=== PATIENT | female | born 1940 | race Caucasian/White ===

== ENCOUNTER → 2017-04-25 | Outpatient (CLI) | payer MEDICARE, OTHER ==
--- NOTE | 2017-04-25 10:49 | BD ---
EXAMINATION TYPE: MG DEXA axial skeleton. DATE OF EXAM: 04/25/2017 COMPARISON: 2010 CLINICAL HISTORY: 76-year-old female osteoporosis Height: 5'3 Weight: 138 FRAX RISK QUESTIONS: Alcohol (3 or more units per day): no Family History (Parent hip fracture): no Glucocorticoids (More than 3mos): no (Ex: prednisone, prednisolone, methylprednisolone, dexamethasone, and hydrocortisone). History of Fracture in Adulthood: yes Secondary Osteoporosis: 1. Type 1 Diabetes: no 2. Hyperthyroidism: no 3. Menopause before 45: no 4. Malnutrition: no 5. Chronic liver disease: no Rheumatoid Arthritis: no Current Tobacco Use: no RISK FACTORS HISTORY OF: Diet low in dairy products/other sources of calcium: yes Postmenopausal woman: yes MEDICATIONS: Thyroid Medications: Which medication: Synthroid How Lon years Additional Medications: blood pressure, heart meds zoloft Additional History: pt had stents, EXAM MEASUREMENTS: Bone mineral densitometry was performed using the Dyn System. Bone mineral density as measured about the Lumbar spine is: ----- L1-L4(G/cm2): 1.255 T Score Values are as follows: ----- L2: 0.3 ----- L3: 0.3 ----- L4: 1.2 ----- L1-L4: 0.6 Bone mineral density has: Decreased -1.2% since study of: 09/17/2014 Bone mineral density about the R hip (g/cm2): 0.850 Bone mineral density about the L hip (g/cm2): 0.751 T Score values are as follows: -----R Neck: -1.4 -----L Neck: -2.1 -----R Total: -1.5 -----L Total: -1.7 Bone mineral density has: Decreased -7.9% since study of: 09/17/2014 IMPRESSION: Osteopenia as indicated by T score values in both hips. There is slightly increased risk of fracture and the patient may be considered for treatment. Re-Screen 2-5 years. NOTE: T-SCORE=SD OF THE YOUNG ADULT MEAN.
--- NOTE | 2017-04-26 07:33 | MM ---
Reason for exam: screening (asymptomatic). Last mammogram was performed 2 years and 7 months ago. History: Patient is postmenopausal. Took estrogen for 12 years 5 months. Took progesterone for 12 years 5 months. Physical Findings: A clinical breast exam by your physician is recommended on an annual basis and results should be correlated with mammographic findings. MG Screening Mammo w CAD Bilateral CC and MLO view(s) were taken. Prior study comparison: September 17, 2014, bilateral MG screening mammo w CAD. The breast tissue is heterogeneously dense. This may lower the sensitivity of mammography. Finding: There are typically benign vascular, round calcifications in both breasts. Asymmetric breast tissue. Developing asymmetry in the right anterior slight outer aspect. ASSESSMENT: Incomplete: need additional imaging evaluation, BI-RAD 0 RECOMMENDATION: Special view mammogram of the right breast. If lesion persists on supplemental views, image directed ultrasound is recommended. [facility] will attempt to contact patient to return for supplemental views and ultrasound if indicated.
== END | disposition home or self-care (01) ==
LOC: RADBDWWP 09:34
PROVIDERS: ATTEND Internal Medicine Geriatric Medicine
DX: Z12.31 Encounter for screening mammogram for malignant neoplasm of breast (principal); M85.80 Other specified disorders of bone density and structure, unspecified site; R92.2 Inconclusive mammogram
CPT/HCPCS: 77080; G0202

== ENCOUNTER → 2017-04-29 | Outpatient (CLI) | payer MEDICARE, OTHER ==
--- NOTE | 2017-04-29 11:03 | MM ---
Reason for exam: additional evaluation requested from abnormal screening. Last mammogram was performed less than 1 month ago. History: Patient is postmenopausal. Took estrogen for 12 years 5 months. Took progesterone for 12 years 5 months. Physical Findings: Nurse did not find any significant physical abnormalities on exam. MG 3D Work Up W/Cad RT CC and MLO view(s) were taken of the right breast. Prior study comparison: April 25, 2017, bilateral MG screening mammo w CAD. September 17, 2014, bilateral MG screening mammo w CAD. June 23, 2012, bilateral digital screening mammo w/CAD. The breast tissue is heterogeneously dense. This may lower the sensitivity of mammography. The lateral anterior asymmetric density does not persist compatible with summation shadow. These results were verbally communicated with the patient and result sheet given to the patient on 04/29/17. ASSESSMENT: Negative, BI-RAD 1 RECOMMENDATION: Return to routine screening mammogram schedule for both breasts.
== END | disposition home or self-care (01) ==
LOC: RADMAMWWP 09:31
PROVIDERS: ATTEND Internal Medicine Geriatric Medicine
DX: R92.8 Other abnormal and inconclusive findings on diagnostic imaging of breast (principal)
CPT/HCPCS: G0206; G0279

== ENCOUNTER 2018-08-06 17:19 | Emergency (ER) | payer MEDICARE, OTHER ==
[2018-08-06 17:29] VITALS: TEMP 98.1
--- NOTE | 2018-08-06 17:41 | ED ---
General Adult HPI - General Chief complaint: Neuro Symptoms/Deficit Stated complaint: POSS TIA Source: patient, EMS Mode of arrival: EMS Limitations: no limitations - History of Present Illness Initial comments: Dictation was produced using garbs dictation software. please excuse any grammatical, word or spelling errors. Chief Complaint: 77-year-old female with past medical history of recent subdural hematoma evacuation presents with several minute episode of right upper extremity numbness and slurred speech. History of Present Illness: This 77-year-old female. Last Tuesday she is found to have subdural hematoma on outpatient CT. She was transferred to [facility] where she was evaluated by neurosurgery. She had a subdural hematoma evacuation. Patient is admitted to the hospital approximately one week. She was discharged yesterday. Today this morning she was at rest when she experience approximately 15 minutes of right upper extremity paresthesias and slurred speech. This was witnessed by her who is at bedside with patient. Currently patient appears to be at baseline. No slurred speech, facial droop, nor deficits or paresthesias noted. Patient does not have a history of CVA. She is on antiepileptics postoperatively. The ROS documented in this emergency department record has been reviewed and confirmed by me. Those systems with pertinent positive or negative responses have been documented in the HPI. All other systems are other negative and/or noncontributory. - Related Data Home Medications Medication Instructions Recorded Confirmed Levothyroxine Sodium [Synthroid] 125 mcg PO DAILY 09/16/15 08/06/18 Sertraline [Zoloft] 75 mg PO DAILY 09/16/15 08/06/18 Acetaminophen [Tylenol] 650 mg PO Q6H PRN 08/06/18 08/06/18 Atorvastatin [Lipitor] 40 mg PO HS 08/06/18 08/06/18 cycloSPORINE 0.05% OPHTH SOLN 1 drop BOTH EYES Q12H 08/06/18 08/06/18 [Restasis] levETIRAcetam [Keppra] 500 mg PO BID 08/06/18 08/06/18 Allergies Allergy/AdvReac Type Severity Reaction Status Date / Time Sulfa (Sulfonamide Allergy Rash/Hives Verified 08/06/18 18:23 Antibiotics) Penicillins AdvReac Nausea Verified 08/06/18 18:23 Review of Systems ROS Statement: Those systems with pertinent positive or pertinent negative responses have been documented in the HPI. ROS Other: All systems not noted in ROS Statement are negative. Past Medical History Past Medical History: Hyperlipidemia Additional Past Medical History / Comment(s): subdural hematoma History of Any Multi-Drug Resistant Organisms: None Reported Past Surgical History: Heart Catheterization With Stent, Orthopedic Surgery Additional Past Surgical History / Comment(s): surgical removal of subdural hematoma Smoking Status: Never smoker Past Alcohol Use History: Rare Past Drug Use History: None Reported General Exam - General Exam Comments Initial Comments: PHYSICAL EXAM: General Impression: Alert and oriented x3, not in acute distress HEENT: Normocephalic atraumatic, extra-ocular movements intact, pupils equal and reactive to light bilaterally, mucous membranes moist. Cardiovascular: Heart regular rate and rhythm, S1&S2 audible, no murmurs, rubs or gallops Chest: Lungs clear to auscultation bilaterally, no rhonchi, no wheeze, no rales Abdomen: Bowel sounds present, abdomen soft, non-tender, non-distended, no organomegaly Musculoskeletal: Pulses present and equal in all extremities, no peripheral edema Motor: Power 5/5 bilaterally, no focal deficits noted Neurological: CN II-XII grossly intact, no focal motor or sensory deficits noted Skin: Intact with no visualized rashes Psych: Normal affect and mood Limitations: no limitations Course Vital Signs 08/06/18 08/06/18 17:20 18:15 Temperature 98.1 F Pulse Rate 70 67 Respiratory 16 16 Rate Blood Pressure 147/71 145/81 O2 Sat by Pulse 96 97 Oximetry Medical Decision Making - Medical Decision Making ED course: 77-year-old female approximately one week out from subdural hematoma evacuation presents with strokelike symptoms that resolved spontaneously. Vital signs upon arrival are within acceptable limits. Neuro exam is normal. Patient feels at baseline. NIH is 0.Laboratory evaluation was obtained. Hemoglobin stable at 11.0. Cardiac panel unremarkable. Potassium level III.3. Rest metabolic panel is grossly unremarkable. Brain CT shows left frontal parietal acute and chronic subdural hemorrhage. There is mild pneumocephalus. These findings represent postsurgical changes. Discussed patient case with Dr. Rodriguez who is covering for patient's neurosurgeon Dr. Yan. Dr. Rodriguez recommends that patient be given 500 mg of Keppra. This likely has to do with some seizure activity from irritation of the blood. Recommends that she is stable for discharge. Patient is told to follow with Dr. Randle tomorrow. Family is told to bring patient back should she express any repeat symptoms. - Lab Data Result diagrams: 08/06/18 17:48 08/06/18 17:48 Lab Results 08/06/18 08/06/18 08/06/18 Range/Units 17:48 17:48 17:48 WBC 6.0 (3.8-10.6) k/uL RBC 3.47 L (3.80-5.40) m/uL Hgb 11.0 L (11.4-16.0) gm/dL Hct 32.7 L (34.0-46.0) % MCV 94.1 (80.0-100.0) fL MCH 31.8 (25.0-35.0) pg MCHC 33.7 (31.0-37.0) g/dL RDW 12.7 (11.5-15.5) % Plt Count 200 (150-450) k/uL Neutrophils % 58 % Lymphocytes % 27 % Monocytes % 8 % Eosinophils % 4 % Basophils % 1 % Neutrophils # 3.5 (1.3-7.7) k/uL Lymphocytes # 1.6 (1.0-4.8) k/uL Monocytes # 0.5 (0-1.0) k/uL Eosinophils # 0.2 (0-0.7) k/uL Basophils # 0.1 (0-0.2) k/uL PT 10.9 (9.0-12.0) sec INR 1.1 (<1.2) Sodium 137 (137-145) mmol/L Potassium 3.3 L (3.5-5.1) mmol/L Chloride 104 (98-107) mmol/L Carbon Dioxide 27 (22-30) mmol/L Anion Gap 6 mmol/L BUN 11 (7-17) mg/dL Creatinine 0.51 L (0.52-1.04) mg/dL Est GFR (CKD-EPI)AfAm >90 (>60 ml/min/1.73 sqM) Est GFR (CKD-EPI)NonAf >90 (>60 ml/min/1.73 sqM) Glucose 112 H (74-99) mg/dL Calcium 8.9 (8.4-10.2) mg/dL Magnesium 1.9 (1.6-2.3) mg/dL Disposition Clinical Impression: Transient neurologic deficit Disposition: HOME SELF-CARE Condition: Fair Instructions: Seizures After Traumatic Brain Injury (ED) Is patient prescribed a controlled substance at d/c from ED?: No Referrals: Jimmie Arshad MD [Primary Care Provider] - 1-2 days Time of Disposition: 19:16
[2018-08-06] MEDS ORDERED: ACETAMINOPHEN TAB 500 MG TAB PO STA (17:59)
[2018-08-06 18:00] LABS: Basophils # (A) 0.1 k/uL (0-0.2); Basophils % (A) 1 %; Eosinophils # (A) 0.2 k/uL (0-0.7); Eosinophils % (A) 4 %; HCT 32.7 % (34.0-46.0); Lymphocytes # (A) 1.6 k/uL (1.0-4.8); Lymphocytes % (A) 27 %; MCH 31.8 pg (25.0-35.0); MCHC 33.7 g/dL (31.0-37.0); MCV 94.1 fL (80.0-100.0); Mean Platelet Volume 8.3; Monocytes # (A) 0.5 k/uL (0-1.0); Monocytes % (A) 8 %; Neutrophils # (A) 3.5 k/uL (1.3-7.7); Neutrophils % (A) 58 %; Platelet Count 200 k/uL (150-450); RBC 3.47 m/uL (3.80-5.40); RDW 12.7 % (11.5-15.5)
[2018-08-06 18:08] LABS: Anion Gap 6 mmol/L; Blood Urea Nitrogen 11 mg/dL (7-17); Calcium 8.9 mg/dL (8.4-10.2); Carbon Dioxide 27 mmol/L (22-30); Chloride 104 mmol/L (98-107); Glucose 112 mg/dL (74-99); Magnesium 1.9 mg/dL (1.6-2.3); Potassium 3.3 mmol/L (3.5-5.1); Sodium 137 mmol/L (137-145)
[2018-08-06 18:11] LABS: INR 1.1 (<1.2); Prothrombin Time 10.9 sec (9.0-12.0)
--- NOTE | 2018-08-06 18:30 | CT ---
EXAMINATION TYPE: CT brain wo con DATE OF EXAM: 08/06/2018 COMPARISON: None HISTORY: Weakness, hx of brain bleed sx CT DLP: 982.7 mGycm Automated exposure control for dose reduction was used. FINDINGS: There is left frontal craniotomy defect. There is air bubbles in the subdural space over the left fro ntal and parietal lobe. There is no mass effect. There is no midline shift. There is small areas of s ubdural hemorrhage over the left posterior frontal lobe. This measures up to 6 mm in thickness. There is widening of the subdural space over the craniotomy defect. IMPRESSION: THERE IS LEFT FRONTAL AND PARIETAL ACUTE AND CHRONIC SUBDURAL HEMORRHAGE. RECENT SURGERY. MILD PNEUMO CEPHALUS. There is very minimal effacement of the left parietal lobe cortex on the coronal images. Ac lorena and chronic hemorrhage measures up to 11 mm thickness.
[2018-08-06] MEDS ORDERED: levETIRAcetam 500 MG TAB PO STA (19:11)
[2018-08-06 19:31] VITALS: BP 126/72; PULSE 69; RESP 18
== END 2018-08-06 20:05 | disposition home or self-care (01) ==
LOC: EC 17:19
DX: R29.818 Other symptoms and signs involving the nervous system (principal); G93.89 Other specified disorders of brain; R29.700 NIHSS score 0; I62.03 Nontraumatic chronic subdural hemorrhage; E78.5 Hyperlipidemia, unspecified; Z95.5 Presence of coronary angioplasty implant and graft; Z98.890 Other specified postprocedural states; Z79.899 Other long term (current) drug therapy; Z88.0 Allergy status to penicillin; Z88.2 Allergy status to sulfonamides
CPT/HCPCS: 36415; 70450; 80048; 83735; 85025; 85610; 99285

== ENCOUNTER → 2019-12-18 | Outpatient (CLI) | payer MEDICARE, OTHER ==
--- NOTE | 2019-12-18 09:18 | CT ---
EXAMINATION TYPE: CT brain wo con DATE OF EXAM: 12/18/2019 COMPARISON: 08/06/2018 HISTORY: Recent fall, dizziness, history of prior brain hemorrhage CT DLP: 945.5 mGycm Automated exposure control for dose reduction was used. TECHNIQUE: CT scan of the head is performed without contrast. FINDINGS: The previously seen left frontal acute subdural hematoma has resolved however there remain s a very small 6 mm greatest thickness left frontal subdural hygroma. Additionally there remain foci of extra-axial air in the left frontal region deep to the craniotomy defect, fewer than the prior 201 8. There is some mass effect on the left frontal sulci in comparison to the right although no acute h emorrhage is seen. There is no midline shift. There is diffuse ventricular and sulcal prominence cons istent with diffuse age-related cerebral atrophy. There is low-attenuation in the periventricular wh ite matter consistent with chronic small vessel ischemic change. The globes are intact and the visua lized sinuses are clear. Scleral banding is seen on the right. Left frontal possible sebaceous cyst seen just deep to the skin surface. Extensive atherosclerosis is seen in the intracranial vasculatur e. IMPRESSION: 1. Chronic subdural hygroma on the left although there is mass effect on the left frontal lobe with f ocal narrowing. This measures up to 6 mm in greatest thickness. Few foci of pneumocephalus remain gabriel p to the left frontal craniotomy site. MRI brain could be considered. 2. No acute intracranial hemorrhage or midline shift. 3. There is diffuse age-related cerebral atrophy and chronic small vessel ischemic change noted. 4. Probable sebaceous cyst of the left frontal region. Correlate with physical exam.
== END | disposition home or self-care (01) ==
LOC: RADCTMAIN 08:36
PROVIDERS: ATTEND Nurse Practitioner Gerontology
DX: G96.0 Cerebrospinal fluid leak (principal); G93.89 Other specified disorders of brain; G31.1 Senile degeneration of brain, not elsewhere classified; I67.82 Cerebral ischemia; R90.89 Other abnormal findings on diagnostic imaging of central nervous system; S09.90XS Unspecified injury of head, sequela
CPT/HCPCS: 70450

== ENCOUNTER 2021-03-19 06:54 | Emergency (ER) | payer MEDICARE, OTHER ==
[2021-03-19] MEDS ORDERED: MECLIZINE 25 MG TAB PO STA (07:43)
[2021-03-19] MEDS ORDERED: SODIUM CHLORIDE 0.9% 500 ML 500 ML IV STA (07:43)
--- NOTE | 2021-03-19 07:52 | ED ---
General Adult HPI - General Chief complaint: Dizziness Stated complaint: dizziness Time Seen by Provider: 03/19/21 07:00 Source: patient, family, RN notes reviewed, old records reviewed Mode of arrival: ambulatory Limitations: no limitations - History of Present Illness Initial comments: This is an 80-year-old female presents emergency Department complaining of dizziness. Patient states she rolled out of bed this morning and she felt like she was moving relative to the room. Patient states she felt as though she was given a fall for which she needed to hold onto the wall to get around. Patient denies any headache. Patient denies any numbness or weakness. Patient denies similar symptoms in the past. Patient states she has quite a bit of nasal drainage and she thinks she has ALLERGIES. Patient denies any facial tenderness. Patient denies any fever chills or cough. Patient denies any chest pain palpitations difficulty breathing or shortness of breath. Patient does mention she has a history of subdural bleed atrial fibrillation and is on Tenormin. Patient denies any abdominal pain patient denies nausea vomiting diarrhea. - Related Data Home Medications Medication Instructions Recorded Confirmed Levothyroxine Sodium [Synthroid] 125 mcg PO DAILY 09/16/15 08/06/18 Sertraline [Zoloft] 75 mg PO DAILY 09/16/15 08/06/18 Acetaminophen [Tylenol] 650 mg PO Q6H PRN 08/06/18 08/06/18 Atorvastatin [Lipitor] 40 mg PO HS 08/06/18 08/06/18 cycloSPORINE 0.05% OPHTH SOLN 1 drop BOTH EYES Q12H 08/06/18 08/06/18 [Restasis] levETIRAcetam [Keppra] 500 mg PO BID 08/06/18 08/06/18 Previous Rx's Medication Instructions Recorded Meclizine [Antivert] 25 mg PO TID #20 tab 03/19/21 Nitrofurantoin Monohyd/M-Cryst 100 mg PO Q12HR #14 cap 03/19/21 [Macrobid] Allergies Allergy/AdvReac Type Severity Reaction Status Date / Time Sulfa (Sulfonamide Allergy Rash/Hives Verified 03/19/21 07:06 Antibiotics) Penicillins AdvReac Nausea Verified 03/19/21 07:06 Review of Systems ROS Statement: Those systems with pertinent positive or pertinent negative responses have been documented in the HPI. ROS Other: All systems not noted in ROS Statement are negative. Past Medical History Past Medical History: Hyperlipidemia Additional Past Medical History / Comment(s): subdural hematoma History of Any Multi-Drug Resistant Organisms: None Reported Past Surgical History: Heart Catheterization With Stent, Orthopedic Surgery Additional Past Surgical History / Comment(s): surgical removal of subdural hematoma Past Psychological History: No Psychological Hx Reported Smoking Status: Never smoker Past Alcohol Use History: Rare Past Drug Use History: None Reported General Exam - General Exam Comments Initial Comments: GENERAL: Patient is well-developed and well-nourished. Patient is nontoxic and well- hydrated and is in mild distress. ENT: Neck is soft and supple. No significant lymphadenopathy is noted. Oropharynx is clear. Moist mucous membranes. Neck has full range of motion without eliciting any pain. EYES: The sclera were anicteric and conjunctiva were pink and moist. Extraocular movements were intact and pupils were equal round and reactive to light. Eyelids were unremarkable. PULMONARY: Unlabored respirations. Good breath sounds bilaterally. No audible rales rhonchi or wheezing was noted. CARDIOVASCULAR: There is a regular rate and rhythm without any murmurs gallops or rubs. ABDOMEN: Soft and nontender with normal bowel sounds. SKIN: Skin is clear with no lesions or rashes and otherwise unremarkable. NEUROLOGIC: Patient is alert and oriented x3. Cranial nerves II through XII are grossly intact. Motor and sensory are also intact. Normal speech, volume and content. Symmetrical smile. Finger to nose testing is normal bilaterally MUSCULOSKELETAL: Normal extremities with adequate strength and full range of motion. No lower extremity swelling or edema. No calf tenderness. LYMPHATICS: No significant lymphadenopathy is noted PSYCHIATRIC: Normal psychiatric evaluation. Limitations: no limitations Course Vital Signs 03/19/21 07:00 Temperature 97.9 F Pulse Rate 63 Respiratory 20 Rate Blood Pressure 169/76 O2 Sat by Pulse 96 Oximetry Medical Decision Making - Medical Decision Making EKG shows sinus bradycardia 56 bpm ME interval 180 QRS is 94 Q-T intervals 432 QTC is 416 2 patient's EKG shows no ST segment elevation or depression. CT of the brain shows no acute abnormality. Chest x-ray shows no acute abnormality. Patient has urinary tract infection and started the patient on Rocephin emergency department we'll send the patient home on antibiotics. I will back in the room to reevaluate the patient and she was feeling better after she had gotten her Antivert. - Lab Data Result diagrams: 03/19/21 08:02 03/19/21 08:02 Lab Results 03/19/21 03/19/21 03/19/21 Range/Units 08:02 08:02 08:02 WBC 6.5 (3.8-10.6) k/uL RBC 4.15 (3.80-5.40) m/uL Hgb 13.7 (11.4-16.0) gm/dL Hct 39.6 (34.0-46.0) % MCV 95.4 (80.0-100.0) fL MCH 33.0 (25.0-35.0) pg MCHC 34.6 (31.0-37.0) g/dL RDW 12.8 (11.5-15.5) % Plt Count 139 L (150-450) k/uL MPV 9.2 Neutrophils % 67 % Lymphocytes % 20 % Monocytes % 7 % Eosinophils % 3 % Basophils % 1 % Neutrophils # 4.4 (1.3-7.7) k/uL Lymphocytes # 1.3 (1.0-4.8) k/uL Monocytes # 0.5 (0-1.0) k/uL Eosinophils # 0.2 (0-0.7) k/uL Basophils # 0.1 (0-0.2) k/uL PT 10.5 (9.0-12.0) sec INR 1.0 (<1.2) APTT 23.0 (22.0-30.0) sec Sodium 140 (137-145) mmol/L Potassium 4.1 (3.5-5.1) mmol/L Chloride 105 (98-107) mmol/L Carbon Dioxide 28 (22-30) mmol/L Anion Gap 7 mmol/L BUN 15 (7-17) mg/dL Creatinine 0.69 (0.52-1.04) mg/dL Est GFR (CKD-EPI)AfAm >90 (>60 ml/min/1.73 sqM) Est GFR (CKD-EPI)NonAf 83 (>60 ml/min/1.73 sqM) Glucose 107 H (74-99) mg/dL Calcium 9.0 (8.4-10.2) mg/dL Magnesium 2.0 (1.6-2.3) mg/dL Total Bilirubin 0.7 (0.2-1.3) mg/dL AST 28 (14-36) U/L ALT 18 (4-34) U/L Alkaline Phosphatase 60 (38-126) U/L Troponin I (0.000-0.034) ng/mL Total Protein 6.8 (6.3-8.2) g/dL Albumin 4.2 (3.5-5.0) g/dL Urine Color Urine Appearance (Clear) Urine pH (5.0-8.0) Ur Specific [place] (1.001-1.035) Urine Protein (Negative) Urine Glucose (UA) (Negative) Urine Ketones (Negative) Urine Blood (Negative) Urine Nitrite (Negative) Urine Bilirubin (Negative) Urine Urobilinogen (<2.0) mg/dL Ur Leukocyte Esterase (Negative) Urine RBC (0-5) /hpf Urine WBC (0-5) /hpf Ur Squamous Epith Cells (0-4) /hpf Urine Bacteria (None) /hpf Urine Mucus (None) /hpf 03/19/21 03/19/21 Range/Units 08:02 08:13 WBC (3.8-10.6) k/uL RBC (3.80-5.40) m/uL Hgb (11.4-16.0) gm/dL Hct (34.0-46.0) % MCV (80.0-100.0) fL MCH (25.0-35.0) pg MCHC (31.0-37.0) g/dL RDW (11.5-15.5) % Plt Count (150-450) k/uL MPV Neutrophils % % Lymphocytes % % Monocytes % % Eosinophils % % Basophils % % Neutrophils # (1.3-7.7) k/uL Lymphocytes # (1.0-4.8) k/uL Monocytes # (0-1.0) k/uL Eosinophils # (0-0.7) k/uL Basophils # (0-0.2) k/uL PT (9.0-12.0) sec INR (<1.2) APTT (22.0-30.0) sec Sodium (137-145) mmol/L Potassium (3.5-5.1) mmol/L Chloride (98-107) mmol/L Carbon Dioxide (22-30) mmol/L Anion Gap mmol/L BUN (7-17) mg/dL Creatinine (0.52-1.04) mg/dL Est GFR (CKD-EPI)AfAm (>60 ml/min/1.73 sqM) Est GFR (CKD-EPI)NonAf (>60 ml/min/1.73 sqM) Glucose (74-99) mg/dL Calcium (8.4-10.2) mg/dL Magnesium (1.6-2.3) mg/dL Total Bilirubin (0.2-1.3) mg/dL AST (14-36) U/L ALT (4-34) U/L Alkaline Phosphatase (38-126) U/L Troponin I <0.012 (0.000-0.034) ng/mL Total Protein (6.3-8.2) g/dL Albumin (3.5-5.0) g/dL Urine Color Light Yellow Urine Appearance Cloudy H (Clear) Urine pH 5.5 (5.0-8.0) Ur Specific [place] 1.010 (1.001-1.035) Urine Protein Negative (Negative) Urine Glucose (UA) Negative (Negative) Urine Ketones Negative (Negative) Urine Blood Negative (Negative) Urine Nitrite Positive H (Negative) Urine Bilirubin Negative (Negative) Urine Urobilinogen <2.0 (<2.0) mg/dL Ur Leukocyte Esterase Large H (Negative) Urine RBC 1 (0-5) /hpf Urine WBC 27 H (0-5) /hpf Ur Squamous Epith Cells 1 (0-4) /hpf Urine Bacteria Many H (None) /hpf Urine Mucus Rare H (None) /hpf Disposition Clinical Impression: Vertigo, Urinary tract infection Disposition: HOME SELF-CARE Condition: Good Instructions (If sedation given, give patient instructions): Vertigo (ED), Urinary Tract Infection in Women (ED) Prescriptions: Meclizine [Antivert] 25 mg PO TID #20 tab Nitrofurantoin Monohyd/M-Cryst [Macrobid] 100 mg PO Q12HR #14 cap Is patient prescribed a controlled substance at d/c from ED?: No Referrals: Jimmie Arshad MD [Primary Care Provider] - 1-2 days Time of Disposition: 09:52
[2021-03-19 08:31] LABS: Prothrombin Time 10.5 sec (9.0-12.0)
[2021-03-19 08:32] LABS: Basophils # (A) 0.1 k/uL (0-0.2); Basophils % (A) 1 %; Eosinophils # (A) 0.2 k/uL (0-0.7); Eosinophils % (A) 3 %; HCT 39.6 % (34.0-46.0); HGB 13.7 gm/dL (11.4-16.0); Lymphocytes # (A) 1.3 k/uL (1.0-4.8); Lymphocytes % (A) 20 %; MCHC 34.6 g/dL (31.0-37.0); MCV 95.4 fL (80.0-100.0); Mean Platelet Volume 9.2; Monocytes # (A) 0.5 k/uL (0-1.0); Monocytes % (A) 7 %; Neutrophils # (A) 4.4 k/uL (1.3-7.7); Neutrophils % (A) 67 %; Platelet Count 139 k/uL (150-450); RBC 4.15 m/uL (3.80-5.40); RDW 12.8 % (11.5-15.5); WBC 6.5 k/uL (3.8-10.6)
[2021-03-19 08:40] LABS: Appearance,Urine Cloudy (Clear); Bacteria,Urine Many /hpf; Bilirubin,Urine Negative (Negative); Blood,Urine Negative (Negative); Color,Urine Light Yellow; Glucose,Urine (UA) Negative (Negative); Ketones,Urine Negative (Negative); Leukocyte Esterase,Urine Large (Negative); Mucus,Urine Rare /hpf; Nitrite,Urine Positive (Negative); PH, Urine 5.5 (5.0-8.0); Protein,Urine Negative (Negative); RBC,Urine 1 /hpf (0-5); Squamous Epithelial Cell,Urine 1 /hpf (0-4); Urobilinogen,Urine <2.0 mg/dL (<2.0); WBC,Urine 27 /hpf (0-5)
[2021-03-19 08:53] LABS: ALT 18 U/L (4-34); AST 28 U/L (14-36); African American GFR (CKD) >90 (>60 ml/min/1.73 sqM); Albumin 4.2 g/dL (3.5-5.0); Alkaline Phosphatase 60 U/L (38-126); Anion Gap 7 mmol/L; Blood Urea Nitrogen 15 mg/dL (7-17); Carbon Dioxide 28 mmol/L (22-30); Chloride 105 mmol/L (98-107); Glucose 107 mg/dL (74-99); Non-African American GFR(CKD) 83 (>60 ml/min/1.73 sqM); Sodium 140 mmol/L (137-145); Total Bilirubin 0.7 mg/dL (0.2-1.3); Total Protein 6.8 g/dL (6.3-8.2)
--- NOTE | 2021-03-19 08:55 | CT ---
EXAMINATION TYPE: CT brain wo con DATE OF EXAM: 03/19/2021 COMPARISON: 12/18/2019 INDICATION: H/O nausea, acute neuro deficits and subdural hematoma DLP: 1058.4 mGycm, Automated exposure control for dose reduction was used. CONTRAST: None CT of the brain is performed utilizing 3 mm thick sections through the posterior fossa and 3 mm thick sections through the remaining calvarium. Study is performed within 24 hours of arrival to the hosp [facility]. No abnormal hyperdensity is present to suggest an acute intracranial hemorrhage. No mass lesion is evident. No acute infarcts are evident. With present. Vascular calcification internal carotid Ventricles and sulci are appropriate for the patient age. Paranasal sinuses and mastoid air cells within the [id number] are clear. Craniotomy changes are left frontal region. Some postsurgical changes at the craniotomy site. No prog ression from prior exam. IMPRESSIONS: 1. No acute intracranial process. 2. Postsurgical changes from craniotomy
--- NOTE | 2021-03-19 09:13 | XR ---
EXAMINATION TYPE: XR chest 2V DATE OF EXAM: 03/19/2021 COMPARISON: 10/15/2011 HISTORY: Chest pain TECHNIQUE: Frontal and lateral views of the chest are obtained. FINDINGS: Heart size is mildly enlarged. Atherotic aorta. No focal consolidation, pneumothorax or pl eural effusion. Coarse interstitial markings are likely chronic. Hyperaeration of lungs may represent a component of COPD. Degenerative changes of the thoracic spine and osteopenia. IMPRESSION: 1. No acute pulmonary disease. Mild cardiomegaly. COPD.
[2021-03-19 09:35] LABS: Potassium 4.1 mmol/L (3.5-5.1)
[2021-03-19] MEDS ORDERED: cefTRIAXone IN SWFI 1,000 MG/10 ML SYRINGE IVP STA (09:36)
[2021-03-19 10:10] VITALS: BP 148/72; PULSE 66; RESP 18; TEMP 97.7
== END 2021-03-19 10:29 | disposition home or self-care (01) ==
LOC: EC 06:54
DX: N39.0 Urinary tract infection, site not specified (principal); R42 Dizziness and giddiness; E78.5 Hyperlipidemia, unspecified; Z88.0 Allergy status to penicillin
CPT/HCPCS: 36415; 80053; 83735; 84484; 85025; 85610; 85730; 81001; 71046; 70450; 99284; 96374; J0696; 93005

== ENCOUNTER → 2023-11-02 | Outpatient (CLI) | payer MEDICARE, OTHER ==
--- NOTE | 2023-11-02 18:30 | BD ---
EXAMINATION TYPE: Axial Bone Density DATE OF EXAM: 11/02/2023 CLINICAL HISTORY: 83 years old Female. ICD-10 CODE: M89.9 DISORDER OF BONE, UNSPECIFIED Height: 61 Weight: 138 FRAX RISK QUESTIONS: Alcohol (3 or more units per day): no Family History (Parent hip fracture): no Glucocorticoids (More than 3mos): no (Ex: prednisone, prednisolone, methylprednisolone, dexamethasone, and hydrocortisone). History of Fracture in Adulthood: no Secondary Osteoporosis: 1. Type 1 Diabetes: no 2. Hyperthyroidism: no 3. Menopause before 45: no 4. Malnutrition: no 5. Chronic liver disease: no Rheumatoid Arthritis: no Current Tobacco Use: no RISK FACTORS HISTORY OF: Surgery to Spine/Hip(right/left)/Wrist (right/left): no MEDICATIONS: Thyroid Medications: synthroid Additional History: EXAM MEASUREMENTS: Bone mineral densitometry was performed using the [employer] System. Bone mineral density as measured about the Lumbar spine is: ----- L1-L4(G/cm2): 1.198 T Score Values are as follows: ----- L1: -0.7 ----- L2: -1.0 ----- L3: 0.2 ----- L4: 1.3 ----- L1-L4: 0.2 Z Score Values are as follows: ----- L1: 1.3 ----- L2: 1.0 ----- L3: 2.2 ----- L4: 3.3 ----- L1-L4: 2.1 Bone mineral density has: decreased -4.5 % since study of: 04.25.2017 Bone mineral density about the R hip (g/cm2): 0.758 Bone mineral density about the L hip (g/cm2): 0.744 T Score values are as follows: -----R Neck: -1.3 -----L Neck: -2.4 -----R Total: -2.0 -----L Total: -2.1 Z Score values are as follows: -----R Neck: 1.1 -----L Neck: 0.0 -----R Total: 0.2 -----L Total: 0.1 Bone mineral density has: decreased -6.7 % since study of: 04.25.2017 FRAX%s: The graph provided illustrates a 18.2% chance for a major osteoporotic fx and a 6.5% chance f or the hips probability for fx in 10 years time. IMPRESSION: Osteopenia (T Score between -2.5 and -1). There is slightly increased risk of fracture and the patient may be considered for treatment. Re-Screen 2-5 years. NOTE: T-SCORE=SD OF THE YOUNG ADULT MEAN.
== END | disposition home or self-care (01) ==
LOC: RADBDWWP 14:55
PROVIDERS: ATTEND Internal Medicine Geriatric Medicine
DX: M85.89 Other specified disorders of bone density and structure, multiple sites (principal)
CPT/HCPCS: 77080

== ENCOUNTER 2024-06-19 14:25 | Emergency (ER) | payer MEDICARE, OTHER ==
--- NOTE | 2024-06-19 14:48 | ED ---
General Adult HPI - General Stated complaint: neck pain Time Seen by Provider: 06/19/24 14:43 Source: patient, RN notes reviewed Mode of arrival: ambulatory Limitations: no limitations - History of Present Illness Initial comments: 83-year-old female presents emergency department complaint of right-sided trapezius pain. Patient states that she been doing stuff at home states that she started having discomfort in that neck she states that has no pain at rest. Patient states she has no current headache. Patient states that she only has pain with movement of her trapezius neck region. She denies any dizziness no focal weakness denies any chest pain or shortness of breath she states she had 1 episode pain that radiates from occipital region. Patient states she has had 3 retinal detachment surgeries states her vision is the best its ever been currently. She states she was seen in urgent care was sent here. She states she does not want to be here. - Related Data Home Medications Medication Instructions Recorded Confirmed Levothyroxine Sodium [Synthroid] 125 mcg PO DAILY 09/16/15 08/06/18 Sertraline [Zoloft] 75 mg PO DAILY 09/16/15 08/06/18 Acetaminophen [Tylenol] 650 mg PO Q6H PRN 08/06/18 08/06/18 Atorvastatin [Lipitor] 40 mg PO HS 08/06/18 08/06/18 cycloSPORINE 0.05% OPHTH SOLN 1 drop BOTH EYES Q12H 08/06/18 08/06/18 [Restasis] levETIRAcetam [Keppra] 500 mg PO BID 08/06/18 08/06/18 Previous Rx's Medication Instructions Recorded Meclizine [Antivert] 25 mg PO TID #20 tab 03/19/21 Nitrofurantoin Monohyd/M-Cryst 100 mg PO Q12HR #14 cap 03/19/21 [Macrobid] Allergies Allergy/AdvReac Type Severity Reaction Status Date / Time Sulfa (Sulfonamide Allergy Rash/Hives Verified 03/19/21 07:06 Antibiotics) Penicillins AdvReac Nausea Verified 03/19/21 07:06 Review of Systems ROS Statement: Those systems with pertinent positive or pertinent negative responses have been documented in the HPI. ROS Other: All systems not noted in ROS Statement are negative. Past Medical History Past Medical History: Hyperlipidemia Additional Past Medical History / Comment(s): subdural hematoma History of Any Multi-Drug Resistant Organisms: None Reported Past Surgical History: Heart Catheterization With Stent, Orthopedic Surgery Additional Past Surgical History / Comment(s): surgical removal of subdural hematoma Past Psychological History: No Psychological Hx Reported Smoking Status: Never smoker Past Alcohol Use History: Rare Past Drug Use History: None Reported General Exam Limitations: no limitations General appearance: alert, in no apparent distress Head exam: Present: atraumatic, normocephalic, normal inspection Neck exam: Present: normal inspection. Absent: tenderness, meningismus, lymphadenopathy Respiratory exam: Present: normal lung sounds bilaterally. Absent: respiratory distress, wheezes, rales, rhonchi, stridor Cardiovascular Exam: Present: regular rate, normal rhythm, normal heart sounds. Absent: systolic murmur, diastolic murmur, rubs, gallop, clicks Extremities exam: Present: normal inspection, full ROM, normal capillary refill. Absent: tenderness, pedal edema, joint swelling, calf tenderness Neurological exam: Present: alert, oriented X3, CN II-XII intact, reflexes normal. Absent: motor sensory deficit Medical Decision Making - Medical Decision Making Was pt. sent in by a medical professional or institution (, PA, BEAM PRESS OPERATOR, urgent care, hospital, or intermediate...) When possible be specific @ -Urgent care Did you speak to anyone other than the patient for history (EMS, parent, family, police, friend...)? What history was obtained from this source @ -No Did you review nursing and triage notes (agree or disagree)? Why? @ -I reviewed and agree with nursing and triage notes Were old charts reviewed (outside hosp., previous admission, EMS record, old EKG, old radiological studies, urgent care reports/EKG's, intermediate records)? Report findings @ -No old charts were reviewed Differential Diagnosis (chest pain, altered mental status, abdominal pain women, abdominal pain men, vaginal bleeding, weakness, fever, dyspnea, syncope, headache, dizziness, GI bleed, back pain, seizure, CVA, palpatations, mental health, musculoskeletal)? @ -Cervical trapezius muscle spasm, cervical strain, early shingles EKG interpreted by me (3pts min.). @ -none X-rays interpreted by me (1pt min.). @ -None done CT interpreted by me (1pt min.). @ -None done U/S interpreted by me (1pt. min.). @ -None done What testing was considered but not performed or refused? (CT, X-rays, U/S, labs)? Why? @ -Did offer imaging, laboratory studies though patient states she is asymptomatic does not want any further testing and states she has an appointment tomorrow with her PCP. What meds were considered but not given or refused? Why? @ -None Did you discuss the management of the patient with other professionals (professionals i.e. , PA, BEAM PRESS OPERATOR, lab, RT, psych nurse, foster care social worker, trucking contractor, teacher, chief legal officer, mental health case manager)? Give summary @ -No Was smoking cessation discussed for >3mins.? @ -No Was critical care preformed (if so, how long)? @ -No Were there social determinants of health that impacted care today? How? (Homelessness, low income, unemployed, alcoholism, drug addiction, transportation, low edu. Level, literacy, decrease access to med. care, group home, rehab)? @ -No Was there de-escalation of care discussed even if they declined (Discuss DNR or withdrawal of care, Hospice)? DNR status @ -No What co-morbidities impacted this encounter? (DM, HTN, Smoking, COPD, CAD, Cancer, CVA, ARF, Chemo, Hep., AIDS, mental health diagnosis, sleep apnea, morbid obesity)? @ -None Was patient admitted / discharged? Hospital course, mention meds given and route, prescriptions, significant lab abnormalities, going to OR and other pertinent info. @ -Discharged patient offered testing including labs and imaging medications patient states she is currently asymptomatic has not had any symptoms since leaving her house. She never had any deficits or altered state. Patient and her significant other understand the risk of leaving and states she has an appointment tomorrow and feels comfortable with discharge. Undiagnosed new problem with uncertain prognosis? @ -No Drug Therapy requiring intensive monitoring for toxicity (Heparin, Nitro, Insulin, Cardizem)? @ -No Were any procedures done? @ -No Diagnosis/symptom? @ -Trapezius muscle strain Acute, or Chronic, or Acute on Chronic? @ -Acute Uncomplicated (without systemic symptoms) or Complicated (systemic symptoms)? @ -uncomplicated Side effects of treatment? @ -No Exacerbation, Progression, or Severe Exacerbation? @ -No Poses a threat to life or bodily function? How? (Chest pain, [place], [place], pneumonia, PE, COPD, DKA, ARF, appy, cholecystitis, CVA, Diverticulitis, Homicidal, Suicidal, threat to staff... and all critical care pts) @ -No Disposition Clinical Impression: Trapezius muscle spasm Disposition: HOME SELF-CARE Is patient prescribed a controlled substance at d/c from ED?: No Referrals: Jimmie Arshad MD [Primary Care Provider] - 1-2 days Time of Disposition: 14:48
[2024-06-19 14:52] VITALS: BP 154/69; PULSE 66; RESP 20; TEMP 98
== END 2024-06-19 14:52 | disposition home or self-care (01) ==
LOC: EC 14:25
CPT/HCPCS: 99283